=== PATIENT | female | born 1975 | race Caucasian/White ===

== ENCOUNTER 2018-03-21 06:04 | Inpatient (IN) | payer MEDICAID ==
[2018-03-21] MEDS ORDERED: LACTATED RINGER'S 1,000 ML IV (06:27)
[2018-03-21] MEDS ORDERED: OXYTOCIN 30 UNITS/LR 500 ML IV ×3 (06:30→20:44)
[2018-03-21] MEDS ORDERED: METHYLERGONOVINE 0.2 MG INJ IM (06:30)
[2018-03-21] MEDS ORDERED: BUTORPHANOL 2 MG INJ IV (06:30)
[2018-03-21] MEDS ORDERED: IBUPROFEN 600 MG TAB PO (06:30)
[2018-03-21] MEDS ORDERED: LIDOCAINE 1% (MPF) 30 ML INJ INJ (06:30)
[2018-03-21] MEDS ORDERED: CARBOPROST 250 MCG INJ IM (06:30)
[2018-03-21] MEDS ORDERED: MISOPROSTOL 200 MCG TAB PR (06:30)
[2018-03-21 06:56] LABS: ADD MAN DIFF? NO
[2018-03-21 07:05] LABS: BASOPHILS % 0.1 % (0.0-2.0); EOSINOPHILS # 0.1 10^3/ul (0.0-0.5); EOSINOPHILS % 1.7 % (0.0-7.0); HEMATOCRIT 34.9 % (37.0-47.0); HEMOGLOBIN 11.5 g/dl (12.0-16.0); LYMPHOCYTES # 1.3 10^3/ul (0.8-2.9); LYMPHOCYTES % 18.6 % (15.0-51.0); MEAN CORPUSCULAR HEMOGLOBIN 29.3 pg (29.0-33.0); MEAN PLATELET VOLUME 11.5 fl (7.4-10.4); MONOCYTE # 0.5 10^3/ul (0.3-0.9); MONOCYTES % 7.6 % (0.0-11.0); NEUTROPHIL # 5.1 10^3/ul (1.6-7.5); NEUTROPHILS % 71.4 % (39.0-77.0); PLATELET COUNT 214 10^3/UL (140-415); RED BLOOD COUNT 3.92 10^6/ul (4.20-5.40); RED CELL DISTRIBUTION WIDTH 15.9 % (11.5-14.5)
[2018-03-21 07:05] LABS: WHITE BLOOD COUNT 7.1 10^3/ul (4.8-10.8)
[2018-03-21] MEDS: LACTATED RINGER'S 1,000 ML IV* ×2 (07:09→15:29)
[2018-03-21 07:23] LABS: INR 0.86; PROTIME 11.8 Sec (11.9-14.9); PT RATIO 0.9
[2018-03-21 07:24] LABS: PARTIAL THROMBOPLASTIN TIME 26.4 Sec (25.0-35.0)
[2018-03-21 07:57] LABS: HEPATITIS B SURFACE ANTIGEN NEGATIVE (NEGATIVE)
[2018-03-21 16:44] LABS: RAPID PLASMA REAGIN NONREACTIVE (NR)
[2018-03-21] MEDS ORDERED: HYDROmorphONE 1 MG/5 ML IV SYRINGE IV (19:30)
[2018-03-21] MEDS ORDERED: ONDANSETRON 4 MG INJ IV ×2 (19:30→21:00)
[2018-03-21] MEDS ORDERED: FENTAnyl 50 MCG/ML VIAL IV (19:30)
[2018-03-21] MEDS ORDERED: KETOROLAC 30 MG INJ IV (19:30)
[2018-03-21] MEDS ORDERED: DIPHENHYDRAMINE 50 MG INJ IV ×2 (19:30→21:00)
[2018-03-21] MEDS ORDERED: MEPERIDINE 25 MG INJ IV (19:30)
[2018-03-21] MEDS: LACTATED RINGER'S 1,000 ML IV (19:30)
[2018-03-21] MEDS ORDERED: PROCHLORPERAZINE 10 MG INJ IV (19:30)
[2018-03-21] MEDS: FAMOTIDINE 20 MG INJ IV (19:42)
[2018-03-21] MEDS: METOCLOPRAMIDE 10 MG INJ IV (19:42)
[2018-03-21] MEDS: CITRIC ACID/SODIUM CITRATE 15 ML CUP PO (19:42)
[2018-03-21] MEDS ORDERED: BUPIVACAINE 0.75%/DEXT (SPINAL) 2 ML INJ (20:06)
[2018-03-21] MEDS ORDERED: morphine SULFATE/PF (10 MG/10 ML) INJ (20:06)
[2018-03-21] MEDS ORDERED: PHENYLephrine (100 MCG/ML) 5ML SYG ×2 (20:12→20:37)
[2018-03-21] MEDS ORDERED: EPHEDrine SULFATE 50 MG/5 ML SYG (20:29)
[2018-03-21] MEDS ORDERED: HYDROmorphONE 0.5 MG/0.5 ML SYG IV ×2 (21:00)
[2018-03-21] MEDS ORDERED: NALOXONE (0.4 MG/ML) INJ IV (21:00)
[2018-03-21] MEDS ORDERED: ZOLPIDEM 5 MG TAB PO (21:00)
[2018-03-21] MEDS: CEFAZOLIN 2 GM/50 ML (PMX) 50 ML IV (21:15)
[2018-03-21] MEDS: OXYTOCIN 30 UNITS/LR 500 ML IV (22:21)
[2018-03-22] MEDS: LACTATED RINGER'S 1,000 ML IV ×3 (00:22→19:00)
[2018-03-22] MEDS ORDERED: NA PHOSPHATE/BIPHOS 133 ML ENEMA PR (00:30)
[2018-03-22] MEDS ORDERED: CARBOPROST 250 MCG INJ IM (00:30)
[2018-03-22] MEDS ORDERED: METHYLERGONOVINE 0.2 MG INJ IM (00:30)
[2018-03-22] MEDS ORDERED: MISOPROSTOL 200 MCG TAB PR (00:30)
[2018-03-22] MEDS ORDERED: OXYTOCIN 30 UNITS/LR 500 ML IV (00:30)
[2018-03-22] MEDS ORDERED: NACL 0.9% 3 ML SYG IV (00:30)
[2018-03-22] MEDS: OXYTOCIN 30 UNITS/LR 500 ML IV (02:36)
[2018-03-22] MEDS: LANOLIN 7 GM TUBE TOP (02:42)
[2018-03-22] MEDS: KETOROLAC 30 MG INJ IV ×2 (06:53→18:05)
[2018-03-22 09:23] LABS: ADD MAN DIFF? NO
[2018-03-22 09:26] LABS: WHITE BLOOD COUNT 9.9 10^3/ul (4.8-10.8)
[2018-03-22 09:26] LABS: BASOPHILS % 0.1 % (0.0-2.0); EOSINOPHILS % 0.2 % (0.0-7.0); HEMATOCRIT 30.2 % (37.0-47.0); HEMOGLOBIN 9.9 g/dl (12.0-16.0); LYMPHOCYTES # 0.8 10^3/ul (0.8-2.9); LYMPHOCYTES % 8.1 % (15.0-51.0); MEAN CORPUSCULAR HEMOGLOBIN 29.1 pg (29.0-33.0); MEAN CORPUSCULAR HGB CONC 32.8 g/dl (32.0-37.0); MEAN CORPUSCULAR VOLUME 88.8 fl (82.0-101.0); MEAN PLATELET VOLUME 11.3 fl (7.4-10.4); MONOCYTE # 0.5 10^3/ul (0.3-0.9); MONOCYTES % 4.8 % (0.0-11.0); NEUTROPHIL # 8.6 10^3/ul (1.6-7.5); NEUTROPHILS % 86.5 % (39.0-77.0); PLATELET COUNT 181 10^3/UL (140-415); RED CELL DISTRIBUTION WIDTH 15.5 % (11.5-14.5)
[2018-03-22] MEDS: IBUPROFEN 800 MG TAB PO (22:38)
[2018-03-23] MEDS: HYDROCODONE/APAP (5/325) TAB PO (01:53)
[2018-03-23] MEDS: IBUPROFEN 800 MG TAB PO ×3 (05:58→21:34)
[2018-03-23] MEDS: NEOMYC/POLYMYX/BACIT 30 GM OINT TOP (15:00)
[2018-03-24] MEDS: IBUPROFEN 800 MG TAB PO ×2 (05:58→13:36)
[2018-03-24] MEDS: DIPHTH/TET/ACEL PERTUSS (ADULT) 0.5 ML VIAL IM* (07:34)
[2018-03-24] MEDS: MEASLES,MUMPS,RUBELLA VACCINE INJ SC* (07:34)
== END 2018-03-24 16:39 | disposition home or self-care (01) | DRG 766 ==
LOC: L-D 06:04 → PP1 23:55
PROVIDERS: Obstetrics & Gynecology
PROC: 10D00Z1 Extraction of Products of Conception, Low, Open Approach (ICD-10-PCS; principal; 2018-03-21 19:00)
PROC: 3E033VJ Introduction of Other Hormone into Peripheral Vein, Percutaneous Approach (ICD-10-PCS; 2018-03-21 19:00)
DX: O36.63X0 Maternal care for excessive fetal growth, third trimester, not applicable or unspecified (principal); O48.0 Post-term pregnancy; Z3A.40 40 weeks gestation of pregnancy; Z37.0 Single live birth
CPT/HCPCS: 76815; 76818; 85025; 85610; 85730; 86592; 86850; 86900; 86901; 87340; 88307; 99464